=== PATIENT | female | born 1935 | race Caucasian/White ===

== ENCOUNTER 2019-05-22 08:29 | Day surgery (SDC) | payer MEDICARE ==
[~2019-05-22 08:29] MED LIST: CHONDR SU A NA/HYALUR INTRAOC KIT (SURGICARE) ONE; DORZOLAMIDE HCL 2%/TIMOLOL MALEAT 0.5% OPH SOLN 10 ML OD PRN; EPINEPHRINE INJ/PF 1 MG/1 ML AMPULE ONE; LIDOCAINE 1%/PHENYLEPHRINE 1.5% 1 ML VIAL ONE
[2019-05-22] MEDS ORDERED: MIDAZOLAM 2 MG/2 ML INJ ONE (08:48)
[2019-05-22] MEDS: BESIFLOXACIN HCL 0.6% OPH SUSP 5 ML BOTTLE OD PRN ×2 (09:19→09:28)
[2019-05-22] MEDS: TROPICAMIDE 1% OPH SOLN 15 ML OD PRN ×2 (09:19→09:28)
[2019-05-22] MEDS: CYCLOPENTOLATE 0.2%/PHENYLEPHRINE 1% OPH SOLN 2 ML OD PRN ×2 (09:19→09:28)
[2019-05-22] MEDS: TETRACAINE HCL 0.5% OPH SOLN 4 ML OD PRN ×2 (09:20→09:29)
[2019-05-22] MEDS: KETOROLAC TROMETHAMINE 0.45% 4 DROP/0.4 ML DROPERETTE OD PRN ×2 (09:20→09:29)
--- NOTE | 2019-05-22 13:49 | Operative Report ---
Operative Report-[facility] Operative Report: DATE OF SURGERY: 05/22/2019 PREOPERATIVE DIAGNOSIS: Cataract, right eye POSTOPERATIVE DIAGNOSIS: Cataract, right eye OPERATION: Cataract extraction with insertion of an IOL of the right eye. Intraocular Lens Model: [20.0 sn60wf] reason for surgery was a decrease in vision for reading SURGEON: Tre Johnson MD ANESTHESIA: Topical PROCEDURE: After obtaining appropriate consent, the patient's right eye was prepped and draped in a sterile fashion as well as the surgeon in the sterile manner and cataract surgery was started. First a paracentesis blade was used to make a side-port incision. Viscoelastic was used to inflate the anterior chamber. Next a 2.4 mm incision was made with a 2.4 mm blade, clear corneal temporarily. A continuous capsulorrhexis was made using a cystotome and Utrata forceps. Following this hydrodissection was carried out to make the isidro fully loose and mobile and it was rotated. Following this, a divide and conquer technique was used to phacoemulsify the isidro. The remaining cortex was removed with an irrigation/aspiration. Provisc was instilled into the capsular bag to i nflate the bag. The intraocular lens was placed. The remaining viscoelastic material was removed with irrigation/aspiration. Following this, the incision was found to be watertight. Besivance and Cosopt was instilled into the eye and a protective shield was placed over the eye. The patient was reurned to the postoperative recovery in a stable condition.
--- NOTE | 2019-05-24 08:49 | EKG REPORT ---
SEVERITY:- ABNORMAL ECG - SINUS RHYTHM VENTRICULAR TRIGEMINY BORDERLINE LEFT AXIS DEVIATION : Confirmed by: Mike Sepulveda 24-May-2019 08:48:20
== END 2019-05-22 09:54 | disposition home or self-care (01) ==
LOC: SC 08:29
PROVIDERS: ATTEND Internal Medicine
DX: H25.11 Age-related nuclear cataract, right eye (principal); J44.9 Chronic obstructive pulmonary disease, unspecified; I10 Essential (primary) hypertension; E11.9 Type 2 diabetes mellitus without complications; E07.9 Disorder of thyroid, unspecified; R06.02 Shortness of breath; I49.9 Cardiac arrhythmia, unspecified; E66.9 Obesity, unspecified; Z79.4 Long term (current) use of insulin; Z79.84 Long term (current) use of oral hypoglycemic drugs; Z79.51 Long term (current) use of inhaled steroids
CPT/HCPCS: 66984; 93005; 93010; A9270; J3490; 36415; 80053; 82550; 82553; 83735; 84443; 84484; 85025; 99283; J0171; J2250; J2370

== ENCOUNTER 2019-05-22 10:11 | Emergency (ER) | payer MEDICARE ==
[2019-05-22 11:42] LABS: ABSOLUTE BASOPHILS # (AUTO) 0.1 10^3/uL (0.0-0.2); ABSOLUTE EOSINOPHILS # (AUTO) 0.2 10^3/uL (0.0-0.6); ABSOLUTE LYMPHOCYTES (AUTO) 1.8 10^3/uL (0.5-4.7); ABSOLUTE MONOCYTES (AUTO) 0.5 10^3/uL (0.1-1.4); ABSOLUTE NEUT (AUTO) 5.5 10^3/uL (1.7-8.2); BASOPHILS % (AUTO) 0.6 % (0-2); EOSINOPHILS % (AUTO) 2.8 % (0-6); HEMATOCRIT 42.7 % (36.0-47.0); HEMOGLOBIN 14.2 g/dL (12.0-15.5); LYMPHOCYTES % (AUTO) 22.1 % (13-45); MEAN CORPUSCULAR HGB CONC 33.4 g/dL (32.0-36.0); MEAN CORPUSCULAR VOLUME 90 fl (80-97); MONOCYTES % (AUTO) 6.5 % (3-13); PLATELET COUNT 218 10^3/uL (150-450); RED BLOOD COUNT 4.74 10^6/uL (3.72-5.28); RED CELL DISTRIBUTION WIDTH 13.8 % (11.5-14.0); TOTAL CELLS COUNTED % (AUTO) 100 %; WHITE BLOOD COUNT 8.1 10^3/uL (4.0-10.5)
--- NOTE | 2019-05-22 11:44 | ER Document Report ---
ED General - General Chief Complaint: Arrhythmia Stated Complaint: ABNORMAL LABS Time Seen by Provider: 05/22/19 10:53 Primary Care Provider: CARLTON DONATO MD [Primary Care Provider] - Follow up as needed TRAVEL OUTSIDE OF THE [place] IN LAST 30 DAYS: No - HPI Notes: Patient is an 84-year-old female who presents emergency department for evaluation after being referred by the surgery center. She was supposed to have cataract extraction of her right eye today. During evaluation she was found to have irregular heart rate. They performed an EKG and she was found to be in by /trigeminy. She was sent here for further evaluation. The patient denies any sensation of palpitations. She states that about 4 weeks ago while lying in bed she had some fleeting sharp chest pains that felt like gas pressure. She states that they lasted only a few seconds. Other than that she denies ever having any chest pain. She has shortness of breath at baseline which is not worse than n ormal. She denies any recent medication changes. - Related Data Allergies/Adverse Reactions: CRABS Allergy (Severe, Uncoded 05/22/19 10:40) Home Medications: Losartan/HCTZ 100/12 and half milligrams, 1 mg daily, metformin 500 mg, 2 pills nightly, Novolin 70/30, 25 units in the morning 25 units at night, aspirin 81 mg daily, multivitamin daily, Symbicort 160/4.5 mcg, 2 puffs twice daily, Xalatan 1 drop nightly, Crestor 5 mg daily, Synthroid 25 mcg daily, estradiol vaginal cream twice weekly Past Medical History - Social History Smoking Status: Never Smoker Chew tobacco use (# tins/day): No Frequency of alcohol use: None Drug Abuse: None Family History: Reviewed & Not Pertinent Patient has suicidal ideation: No Patient has homicidal ideation: No - Past Medical History Cardiac Medical History: Reports: Hx Hypercholesterolemia, Hx Hypertension - CONTROLLED Denies: Hx Heart Attack Pulmonary Medical History: Reports: Hx Asthma, Hx COPD EENT Medical History: Reports: Eyes - Glaucoma, cataracts Neurological Medical History: Denies: Hx Cerebrovascular Accident, Hx Seizures Endocrine Medical History: Reports: Hx Diabetes Mellitus Type 2, Hx Hypothyroidism Renal/ Medical History: Reports: Hx Kidney Stones GI Medical History: Denies: Hx Hepatitis, Hx Hiatal Hernia, Hx Ulcer Infectious Medical History: Denies: Hx Hepatitis Past Surgical History: Reports: Hx Hysterectomy. Denies: Hx Mastectomy, Hx Open Heart Surgery, Hx Pacemaker Review of Systems - Review of Systems Constitutional: No symptoms reported EENT: See HPI Cardiovascular: See HPI Respiratory: No symptoms reported Gastrointestinal: No symptoms reported Genitourinary: No symptoms reported Musculoskeletal: No symptoms reported Skin: No symptoms reported Physical Exam - Vital signs Vitals: Pulse Ox 96 05/22/19 10:34 - Notes Notes: Vital signs reviewed, please refer to chart. Head is normocephalic, atraumatic. Left pupil is round and reactive to light, right pupil is dilated. Neck is supple without meningismus. Heart is regular rate and rhythm. Lungs are clear to auscultation bilaterally. Abdomen is soft, nontender, normoactive bowel sounds throughout. Extremities without cyanosis, clubbing. Posterior calves are nontender. Peripheral pulses are equal. Skin is warm and dry. Patient is awake, alert, neurological exam is nonfocal. Course - Re-evaluation Re-evalutation: 05/22/19 11:46 Patient presents emergency department for evaluation. She is noted to have frequent PVCs/bigeminy/trigeminy on monitor and as well as on EKG. Laboratory investigations ordered and pending at this time, we will continue to monitor. 05/22/19 13:06 Patient continues to have frequent PVCs. Her work-up here was entirely unremarkable. She did have some desaturation with lying flat, but this is not surprising in a woman with a BMI of nearly 55. I did discuss outpatient evaluation for possible sleep apnea, and the family voiced understanding. At this point I do not see any emergent reason for her ectopy. Her primary care provider may consider sending her on to cardiology for further evaluation/echocardiogram. At this point the patient is stable. I will get discharge at home. She is to follow-up with PCP to further evaluate for clearance for her cataract surgery. - Vital Signs Vital signs: Temp Pulse Resp BP Pulse Ox 15 157/93 H 95 05/22/19 12:01 05/22/19 12:01 05/22/19 12:01 - Laboratory Result Diagrams: 05/22/19 11:12 05/22/19 11:12 Laboratory results interpreted by me: 05/22/19 11:12 BUN 22 H Glucose 195 H - EKG Interpretation by Me Additional EKG results interpreted by me: 05/22/19 11:46 Sinus mechanism with rate 86 bpm, bigeminy noted. Left axis deviation. Borderline prolonged QT interval. Nonspecific ST changes, but no acute changes concerning for ischemia or infarction. Discharge - Discharge Clinical Impression: Frequent PVCs Condition: Stable Disposition: HOME, SELF-CARE Instructions: PVCs ([facility] [place]) Additional Instructions: Your oxygenation, electrolytes, cardiac work-up here was unremarkable. Follow- up with your primary care provider. He may wish to pursue further evaluation and work-up prior to surgical clearance. Otherwise, return to the ED with worsening or new concerning symptoms of any sort. Referrals: CARLTON DONATO MD [Primary Care Provider] - Follow up as needed
[2019-05-22 11:58] LABS: ALBUMIN 4.3 g/dL (3.5-5.0); ALKALINE PHOSPHATASE 68 U/L (38-126); ANION GAP 10 (5-19); ASPARTATE AMINO TRANSFERASE 29 U/L (14-36); BILIRUBIN,DIRECT 0.2 mg/dL (0.0-0.4); BILIRUBIN,TOTAL 0.4 mg/dL (0.2-1.3); BLOOD UREA NITROGEN 22 mg/dL (7-20); CALCIUM 9.6 mg/dL (8.4-10.2); CARBON DIOXIDE 30 mmol/L (22-30); CHLORIDE 99 mmol/L (98-107); CREATINE KINASE 61 U/L (30-135); GLUCOSE 195 mg/dL (75-110); POTASSIUM 4.5 mmol/L (3.6-5.0)
[2019-05-22 12:09] LABS: CREATINE KINASE MB 1.12 ng/mL (<4.55); TROPONIN I < 0.012 ng/mL
[2019-05-22 13:56] VITALS: BP 147/90
--- NOTE | 2019-05-24 08:49 | EKG REPORT ---
SEVERITY:- ABNORMAL ECG - SINUS RHYTHM VENTRICULAR TRIGEMINY BORDERLINE LEFT AXIS DEVIATION BORDERLINE PROLONGED QT INTERVAL : Confirmed by: Mike Sepulveda 24-May-2019 08:48:13
== END 2019-05-22 14:06 | disposition home or self-care (01) ==
LOC: ER 10:11
DX: I49.3 Ventricular premature depolarization (principal); I10 Essential (primary) hypertension; E78.00 Pure hypercholesterolemia, unspecified; J44.9 Chronic obstructive pulmonary disease, unspecified; E03.9 Hypothyroidism, unspecified; E11.9 Type 2 diabetes mellitus without complications; H40.9 Unspecified glaucoma; R06.02 Shortness of breath; Z79.899 Other long term (current) drug therapy; Z79.4 Long term (current) use of insulin; Z79.84 Long term (current) use of oral hypoglycemic drugs; Z79.82 Long term (current) use of aspirin; Z91.013 Allergy to seafood
CPT/HCPCS: 36415; 80053; 82550; 82553; 83735; 84443; 84484; 85025; 93005; 93010; 99283

== ENCOUNTER 2019-07-10 08:48 | Day surgery (SDC) | payer MEDICARE ==
[~2019-07-10 08:48] MED LIST changes: -DORZOLAMIDE HCL 2%/TIMOLOL MALEAT 0.5% OPH SOLN 10 ML OD PRN; +KETOROLAC TROMETHAMINE 0.45% 4 DROP/0.4 ML DROPERETTE OD PRN; +MIDAZOLAM 2 MG/2 ML INJ ONE
[2019-07-10] MEDS: CYCLOPENTOLATE 0.2%/PHENYLEPHRINE 1% OPH SOLN 2 ML OD PRN ×3 (09:36→09:56)
[2019-07-10] MEDS: TROPICAMIDE 1% OPH SOLN 15 ML OD PRN ×3 (09:36→09:56)
[2019-07-10] MEDS: BESIFLOXACIN HCL 0.6% OPH SUSP 5 ML BOTTLE OD PRN ×4 (09:36→10:35)
[2019-07-10] MEDS: TETRACAINE HCL 0.5% OPH SOLN 4 ML OD PRN ×3 (09:37→10:14)
[2019-07-10] MEDS: DORZOLAMIDE HCL 2%/TIMOLOL MALEAT 0.5% OPH SOLN 10 ML OD PRN ×2 (10:35)
--- NOTE | 2019-07-11 07:55 | Operative Report ---
Operative Report-[facility] Operative Report: DATE OF SURGERY: 07/10/2019 PREOPERATIVE DIAGNOSIS: Cataract, right eye POSTOPERATIVE DIAGNOSIS: Cataract, right eye OPERATION: Cataract extraction with insertion of an IOL of the right eye. Intraocular Lens Model: [20.0 sn60wf] Reason for surgery was difficulty watching TV SURGEON: Tre Johnson MD ANESTHESIA: Topical PROCEDURE: After obtaining appropriate consent, the patient's right eye was prepped and draped in a sterile fashion as well as the surgeon in the sterile manner and cataract surgery was started. First a paracentesis blade was used to make a side-port incision. Viscoelastic was used to inflate the anterior chamber. Next a 2.4 mm incision was made with a 2.4 mm blade, clear corneal temporarily. A continuous capsulorrhexis was made using a cystotome and Utrata forceps. Following this hydrodissection was carried out to make the isidro fully loose and mobile and it was rotated. Following this, a divide and conquer technique was used to phacoemulsify the isidro. The remaining cortex was removed with an irrigation/aspiration. Provisc was instilled into the capsular bag to inflate the bag. The intraocular lens was placed. The remaining viscoelastic material was removed with irrigation/aspiration. Following this, the incision was found to be watertight. Besivance and Cosopt was instilled into the eye and a protective shield was placed over the eye. The patient was reurned to the postoperative recovery in a stable condition.
== END 2019-07-10 11:28 | disposition home or self-care (01) ==
LOC: SC 08:48
PROVIDERS: ATTEND Internal Medicine
DX: H25.11 Age-related nuclear cataract, right eye (principal); J44.9 Chronic obstructive pulmonary disease, unspecified; I10 Essential (primary) hypertension; E11.9 Type 2 diabetes mellitus without complications; G47.33 Obstructive sleep apnea (adult) (pediatric); E66.01 Morbid (severe) obesity due to excess calories; E03.9 Hypothyroidism, unspecified; Z79.51 Long term (current) use of inhaled steroids
CPT/HCPCS: 66984; 82962; J2250; J3490 ×2; A9270; J0171; J2370; 142

== ENCOUNTER 2019-07-28 06:47 | Day surgery (SDC) | payer MEDICARE ==
[~2019-07-28 06:47] MED LIST changes: -CHONDR SU A NA/HYALUR INTRAOC KIT (SURGICARE) ONE; -EPINEPHRINE INJ/PF 1 MG/1 ML AMPULE ONE; -KETOROLAC TROMETHAMINE 0.45% 4 DROP/0.4 ML DROPERETTE OD PRN; +KETOROLAC TROMETHAMINE 0.45% 4 DROP/0.4 ML DROPERETTE OS PRN; -LIDOCAINE 1%/PHENYLEPHRINE 1.5% 1 ML VIAL ONE; -MIDAZOLAM 2 MG/2 ML INJ ONE
[2019-07-28] MEDS: TETRACAINE HCL 0.5% OPH SOLN 4 ML OS PRN ×4 (07:06→07:55)
[2019-07-28] MEDS: BESIFLOXACIN HCL 0.6% OPH SUSP 5 ML BOTTLE OS PRN ×4 (07:07→08:18)
[2019-07-28] MEDS ORDERED: MIDAZOLAM 2 MG/2 ML INJ ONE (07:07)
[2019-07-28] MEDS: CYCLOPENTOLATE 0.2%/PHENYLEPHRINE 1% OPH SOLN 2 ML OS PRN ×3 (07:07→07:35)
[2019-07-28] MEDS ORDERED: ONDANSETRON HCL INJ/PF 4 MG/2 ML SDV ONE (07:07)
[2019-07-28] MEDS: TROPICAMIDE 1% OPH SOLN 15 ML OS PRN ×3 (07:07→07:35)
[2019-07-28] MEDS ORDERED: FENTANYL CITRATE INJ/PF 100 MCG/2 ML AMPUL ONE (07:07)
[2019-07-28] MEDS: EPINEPHRINE INJ/PF 1 MG/1 ML AMPULE ONE ×2 (08:06)
[2019-07-28] MEDS: LIDOCAINE 1%/PHENYLEPHRINE 1.5% 1 ML VIAL ONE ×2 (08:06)
[2019-07-28] MEDS: CHONDR SU A NA/HYALUR INTRAOC KIT (SURGICARE) ONE ×2 (08:06)
[2019-07-28] MEDS: DORZOLAMIDE HCL 2%/TIMOLOL MALEAT 0.5% OPH SOLN 10 ML OS PRN ×2 (08:18)
--- NOTE | 2019-07-28 11:47 | Operative Report ---
Operative Report-[facility] Operative Report: DATE OF SURGERY: 07/28/2019 PREOPERATIVE DIAGNOSIS: Cataracts, left eye POSTOPERATIVE DIAGNOSIS: Cataract, left eye OPERATION: Cataract extraction with insertion of an IOL of the left eye. Intraocular Lens Model: [20.0 sn60wf] Reason for surgery was difficulty seeing the television SURGEON: Tre Johnson MD ANESTHESIA: Topical PROCEDURE: After obtaining appropriate consent, the patient's left eye was prepped and draped in a sterile fashion as well as the surgeon in the sterile manner and cataract surgery was started. First a paracentesis blade was used to make a side-port incision. Viscoelastic was used to inflate the anterior chamber. Next a 2.4 mm incision was made with a 2.4 mm blade, clear corneal temporarily. A continuous capsulorrhexis was made using a cystotome and Utrata forceps. Following this hydrodissection was carried out to make the lens fully loose and mobile and it was rotated 90 degrees. Following this, a divide and conquer technique was used to phacoemulsify the lens. The remaining cortex was removed with an irrigation/aspiration. Provisc was instilled into the capsular bag to inflate the bag.The intraocular lens was placed. The remaining viscoelastic material was removed with irrigation/aspiration. Following this, the incision was found to be watertight. Besivance and Cosopt was instilled into the eye and a protective shield was placed over the eye. The patient was returned to the postoperative recovery in a stable condition.
== END 2019-07-28 08:58 | disposition home or self-care (01) ==
LOC: SC 06:47
PROVIDERS: ATTEND Internal Medicine
DX: H25.12 Age-related nuclear cataract, left eye (principal); H40.053 Ocular hypertension, bilateral; Z96.1 Presence of intraocular lens; J44.9 Chronic obstructive pulmonary disease, unspecified; Z79.899 Other long term (current) drug therapy; I10 Essential (primary) hypertension; E11.9 Type 2 diabetes mellitus without complications; Z79.84 Long term (current) use of oral hypoglycemic drugs; Z79.82 Long term (current) use of aspirin; Z79.51 Long term (current) use of inhaled steroids
CPT/HCPCS: 66984; 82962; V2632; J2250; J3490 ×2; A9270; J0171; J2405; J2370; 142; J3010